=== PATIENT | female | born 1970 | race Caucasian/White ===

== ENCOUNTER 2024-10-21 17:49 | Emergency (ER) | payer BC ==
[2024-10-21] MEDS ORDERED: FAMOTIDINE 20 MG/2 ML VIAL IV ONE (18:13)
[2024-10-21] MEDS ORDERED: NA CHLORIDE 0.9% 1,000 ML ONE (18:13)
[2024-10-21 18:32] LABS: Absolute Basophils 0.1 K/uL (0-0.5); Absolute Eosinophils 0.1 K/uL (0-0.5); Absolute Lymphocytes (CBC) 1.8 K/uL (0.7-4.9); Absolute Monocytes 0.4 K/uL (0.1-1.3); Absolute Neutrophil 6.4 K/uL (1.8-8.0); Basophils % 1.1 % (0-1.3); Eosinophils % 1.6 % (0-4.4); Hematocrit 39.6 % (36.0-45.0); Hemoglobin 13.6 g/dL (12.0-15.0); Lymphocytes % 19.9 % (15.3-44.8); MCH 32.3 pg (27.0-35.0); MCHC 34.4 g/dL (32.0-36.0); MPV 6.9 fL (7.6-11.3); Monocytes % 4.6 % (3.3-12.3); Neutrophils % 72.8 % (41.7-73.7); Platelets 326 thou/uL (152-406); RBC Red Blood Cell Count 4.22 M/uL (3.86-4.86); Red Cell Distribution Width 12.9 % (12.1-15.2)
[2024-10-21 18:33] LABS: Specific Gravity 1.025 (1.005-1.030)
[2024-10-21 18:36] LABS: Specific Gravity 1.025 (1.005-1.030); Sqamous Epithelial <5 /HPF (None Seen); Urine Bacteria None Seen /HPF (<20); Urine Bilirubin NEGATIVE (Negative); Urine Blood 3+ (OVER) (Negative); Urine Clarity Turbid (Clear); Urine Color Yellow (Yellow); Urine Crystals Unidentified Few /HPF (None Seen); Urine Culture Reflex Order REFLEXED; Urine Glucose NEGATIVE (Negative); Urine Ketones NEGATIVE (Negative); Urine Microscopic Reflex YN ORDER UMIC; Urine Mucus 2+ /HPF (None Seen); Urine Nitrite NEGATIVE (Negative); Urine Protein 1+ (Negative); Urine RBC >50 /HPF (None Seen); Urine Urobilinogen Normal (Normal); Urine WBC 20-50 /HPF (<5); Urine Yeast (Budding) Trace /HPF (None Seen)
[2024-10-21 18:55] LABS: ALT/SGPT 21 U/L (13-56); AST/SGOT 20 U/L (15-37); Albumin 4.2 g/dL (3.4-5.0); Albumin/Globulin Ratio 1.1 (1.1-1.8); Alkaline Phosphatase 63 U/L (45-117); Anion Gap 14.5 mEq/L (5.0-15.0); BUN Blood Urea Nitrogen 9 mg/dL (7-18); Bicarbonate 24 mEq/L (21-32); Bilirubin Total 0.5 mg/dL (0.2-1.0); Globulin 3.7 g/dL (2.3-3.5); Glomerular Filtration Rate 86 ml/min (=/>90); Glucose Level 101 mg/dL (74-106); Lipase 75 U/L (13-75); Potassium 3.5 mEq/L (3.5-5.1); Protein, Total 7.9 g/dL (6.4-8.2); Sodium Level 140 mEq/L (136-145); Thyroid Stimulating Hormone 0.907 uIU/mL (0.358-3.740)
[2024-10-21 18:56] LABS: C-Reactive Protein < 2.90 mg/L (<3.00); Troponin High Sensitivity < 3.0 pg/mL (<58.9)
[2024-10-21] MEDS ORDERED: PANTOPRAZOLE 40 MG INJ ONE (19:04)
--- NOTE | 2024-10-21 19:14 | RAD REPORT ---
EXAMINATION: CT ABDOMEN AND PELVIS WITH CONTRAST CLINICAL INDICATION: Female, 53 years old.Epigastric Pain;Abd pain TECHNIQUE: CT abdomen and pelvis was performed, after the administration of IV contrast, as per [facility] protocol. Axial, sagittal and coronal reconstructions were obtained. One or more of the following dose reduction techniques were used: Automated exposure control, adjustment of the mA and/o r kV according to patient size, and/or iterative reconstruction. Unless otherwise specified, incidental findings do not require dedicated imaging follow-up. [id number]. COMPARISON: No prior exam. FINDINGS: LOWER CHEST: No acute process identified.No significant pericardial effusion. Mild circumferential th ickening of the distal esophagus which could reflect esophagitis. UPPER GI: No significant abnormality. LIVER: Benign-appearing low-density lesions along segment 4 of the liver. No follow-up required. GALLBLADDER/BILE DUCTS: No biliary ductal dilatation.? PANCREAS: No mass, ductal dilation, or eda-pancreatic fluid. SPLEEN: Unremarkable. ADRENALS: No adrenal masses. KIDNEYS AND URETERS: No hydronephrosis.No suspicious renal mass.No urinary tract calculi identified. Specifically, no ureteral calculi. ABDOMINAL AORTA AND OTHER VESSELS: Normal caliber aorta and IVC. PERITONEUM: Nonspecific pelvic free fluid. There is also nonspecific fat stranding in the right lower quadrant at the small bowel mesentery and right paracolic gutter. LYMPH NODES: No pathologic lymphadenopathy. ABDOMINAL WALL: Unremarkable SMALL BOWEL/COLON: The course of the colon is difficult to follow. It is likely redundant. There is e vidence of mesenteric swirling in the left hemiabdomen.Normal appendix near the midline in the lower abdomen. No bowel obstruction identified. URINARY BLADDER: Decompressed, not well assessed. REPRODUCTIVE ORGANS: No pathologic process. MUSCULOSKELETAL: Small broad-based disc bulges present at L3-4, L4-5, and L5-S1 but without significa nt neural foraminal narrowing or central spinal stenosis. There is some facet degenerative changes as well that are mild. Nonspecific degenerative changes are present at the right SI joint anteriorly. ADDITIONAL FINDINGS: None. IMPRESSION: Redundant colon with course difficult to follow. No bowel obstruction is identified. Moderate colonic stool is noted. In addition, there is nonspecific stranding in the right lower quadrant and abnormal pelvic free fluid. In the left hemiabdomen, there is "swirling" of the small bowel mesentery but without associated focal inflammatory changes or dilated small bowel. The mesentery can be fairly mobile and that could explain some of these findings and may be unrelated to the acute present ation. In the absence of more definitive features, the findings are nonspecific. Repeat CT with oral contrast or Gastrografin small bowel follow-through could be considered. Note that the appendix is normal and no urinary tract calculi are identified.
--- NOTE | 2024-10-21 19:15 | RAD REPORT ---
Abdomen Exam Limited: 10/21/2024 6:55 PM CLINICAL HISTORY: RUQ pain STUDY: Limited right upper quadrant ultrasound of abdomen. COMPARISON: None. FINDINGS: Liver: Limited evaluation but grossly unremarkable. Bile ducts: No intrahepatic or extrahepatic biliary ductal dilatation. Common bile duct measures 3 mm. Gallbladder: Normal. IMPRESSION: Negative for cholelithiasis or acute cholecystitis. No biliary ductal dilatation.
--- NOTE | 2024-10-21 19:29 | EDPHYS ---
Physician Documentation [facility] Name: Elza Mejia Age: 53 yrs Sex: Female : 1970 Arrival Date: 10/21/2024 Time: 17:49 Bed 5 Private MD: ED Physician Jamila Gerber HPI: 10/21 18:30 This 53 yrs old Female presents to ER via Ambulatory with complaints of Abdominal Pain. sp3 18:30 53-year-old female with history of rheumatoid arthritis, Peng's thyroiditis now sp3 presents to the ED with chief complaint epigastric pain for 3 days progressively getting worse radiating into her back. Patient also has mild pain to the right lower quadrant. She endorses light stools but denies fever, headache, neck pain or stiffness, upper chest pain, shortness of breath, left-sided abdominal pain, dysuria, urinary frequency, gross visualized hematuria, syncope, near syncope, melena, rash, known sick contacts, travel history, or any other signs or symptoms on ROS at this time. Past surgical history is positive for BTL and no other abdominal procedures. . Historical: - Allergies: 18:06 No Known Allergies; ld1 - PMHx: 18:06 Rheumatoid arthritis; Peng Disease; ld1 - Immunization history:: Adult Immunizations up to date. - Infectious Disease History:: Denies. - Social history:: Smoking status: Patient denies any tobacco usage or history of. ROS: 18:33 Constitutional: Negative for fever, chills, and weight loss, Eyes: Negative for injury, sp3 pain, redness, and discharge, ENT: Negative for injury, pain, and discharge, Neck: Negative for injury, pain, and swelling, Cardiovascular: Negative for chest pain, palpitations, and edema, Respiratory: Negative for shortness of breath, cough, wheezing, and pleuritic chest pain, : Negative for injury, bleeding, discharge, and swelling, MS/Extremity: Negative for injury and deformity, Skin: Negative for injury, rash, and discoloration, Neuro: Negative for headache, weakness, numbness, tingling, and seizure, Psych: Negative for depression, anxiety, suicide ideation, homicidal ideation, and hallucinations, Allergy/Immunology: Negative for hives, rash, and allergies, Endocrine: Negative for neck swelling, polydipsia, polyuria, polyphagia, and marked weight changes, Hematologic/Lymphatic: Negative for swollen nodes, abnormal bleeding, and unusual bruising, 18:33 All other systems are negative, Exam: 18:33 Constitutional: This is a well developed, well nourished patient who is awake, alert, sp3 and in no acute distress. Head/Face: Normocephalic, atraumatic. Eyes: Pupils equal round and reactive to light, extra-ocular motions intact. Lids and lashes normal. Conjunctiva and sclera are non-icteric and not injected. Cornea within normal limits. Periorbital areas with no swelling, redness, or edema. Neck: Trachea midline, no thyromegaly or masses palpated, and no cervical lymphadenopathy. Supple, full range of motion without nuchal rigidity, or vertebral point tenderness. No Meningismus. Chest/axilla: Normal chest wall appearance and motion. Nontender with no deformity. No lesions are appreciated. Cardiovascular: Regular rate and rhythm with a normal S1 and S2. No gallops, murmurs, or rubs. Normal PMI, no JVD. No pulse deficits. Respiratory: Lungs have equal breath sounds bilaterally, clear to auscultation and percussion. No rales, rhonchi or wheezes noted. No increased work of breathing, no retractions or nasal flaring. Back: No spinal tenderness. No costovertebral tenderness. Full range of motion. Skin: Warm, dry with normal turgor. Normal color with no rashes, no lesions, and no evidence of cellulitis. MS/ Extremity: Pulses equal, no cyanosis. Neurovascular intact. Full, normal range of motion. Neuro: Awake and alert, GCS 15, oriented to person, place, time, and situation. Cranial nerves II-XII grossly intact. Motor strength 5/5 in all extremities. Sensory grossly intact. Cerebellar exam normal. Normal gait. Psych: Awake, alert, with orientation to person, place and time. Behavior, mood, and affect are within normal limits. 18:33 Abdomen/GI: Pain to palpation epigastric region without peritoneal signs, rebound or guarding. Negative CVA tenderness noted. Patient also has mild pain to the right lower quadrant again without rebound or guarding. No abdominal distention, bloating or surface rash noted., 19:01 ECG was reviewed by the Attending Physician. EKG demonstrates normal sinus rhythm at 81 sp3 bpm with normal intervals, normal QRS, normal axis, normal ST/T segments without evidence of acute ischemia. Vital Signs: 18:05 Weight 29.48 kg; Height 5 ft. 4 in. ; Pain 5/10; ld1 18:28 BP 134 / 71; Pulse 75; Resp 18; Temp 97.3(TE); Pulse Ox 100% on R/A; ld1 18:28 Pain 5/10; ld1 19:24 BP 113 / 63; Pulse 76; Resp 15; Pulse Ox 98% ; vc1 18:05 Body Mass Index 11.16 (29.48 kg, 162.56 cm) ld1 18:05 Pain Scale: Adult ld1 18:28 Pain Scale: Adult ld1 MDM: 17:54 Medical Screening Exam initiated sp3 18:34 Data reviewed: vital signs, nurses notes, old medical records, lab test result(s), EKG, sp3 radiologic studies. ED course: 53-year-old female with PMH above now with epigastric pain. Differential diagnosis includes gastritis, biliary pathology including cholelithiasis, biliary colic, choledocholithiasis, cholecystitis, pancreatitis, peptic ulcer disease, colitis, constipation, functional abdominal pain, among others. I am not highly suspicious of acute coronary syndrome, retroperitoneal pathology, kidney stone/ureterolithiasis, UTI/pyelonephritis spectrum, [employer]ION INVESTIGATOR pathology, vascular pathology including aorta, or any other critical process at this time including sepsis and shock. Vital signs are normal and clinically patient is perfusing properly. Workup will include CT scan of the abdomen pelvis with IV contrast, ultrasound right upper quadrant, general labs including TSH and lactate, EKG and general supportive care with normal saline, Protonix and H2 maria victoria. Disposition pending workup and patient course. Patient will like to be signed out to nighttime physician for final disposition.. 19:24 ED course: Discussed the case with Dr. Bautista radiology. Patient has redundant colon with sp3 extensive stool/constipation. No significant inflammatory changes noted. Gallbladder, appendix, genitourinary system all within normal limits. UA with some white cells however clinically not UTI. I discussed with patient and we will hold antibiotics. Patient also has some esophagitis. Patient was offered Gastrografin with serial plain x-rays and 23-hour observation to follow clinical exam, however patient elects to try laxative at home. 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 Protonix and H2 maria victoria given in the ED. Vital signs currently normal. Ultrasound also demonstrates no gallbladder abnormality. Patient will be discharged home with follow-up to GI for recommended endoscopy. Patient was also counseled on caffeine usage.. 10/21 18:09 Order name: CBC with Diff; Complete Time: 19:08 10/21 18:09 Order name: CMP; Complete Time: 19:10/21 18:09 Order name: Lipase; Complete Time: 19:10/21 18:09 Order name: Test, Urine; Complete Time: 19:10/21 18:09 Order name: Urinalysis w/ reflexes; Complete Time: 19:10/21 18:09 Order name: Troponin High Sensitivity; Complete Time: 19:10/21 18:09 Order name: CRP; Complete Time: 19: 10/21 18:09 Order name: Lactate w/ 2H reflex if indic.; Complete Time: :10/21 18:09 Order name: TSH; Complete Time: 19:10/21 18:41 Order name: Urine Culture [facility] 10/21 18:09 Order name: CT Abd/Pelvis - IV Contrast Only; Complete Time: 19:10/21 18:09 Order name: US Abdomen Limited; Complete Time: 19:10/21 18:09 Order name: IV Saline Lock; Complete Time: 18:27 10/21 18:09 Order name: Labs collected and sent; Complete Time: 18:10/21 18:09 Order name: EKG - Nurse/Tech; Complete Time: 18:27 sp3 Administered Medications: 18:27 Drug: Famotidine IVP 20 mg IVP once; dilute with 10 mL 0.9% NaCl; give over 2 minutes ld1 Route: IVP; Site: right forearm; 19:43 Follow up: Response: No adverse reaction vc1 18:27 Drug: NS 0.9% IV 1000 ml IV at 1 bolus Per protocol; to be given as a bolus over 60 ld1 minutes Route: IV; Rate: 1 bolus; Site: right forearm; 19:43 Follow up: IV Status: Completed infusion; IV Intake: 1000ml vc1 19:11 Drug: Pantoprazole IVP 40 mg IVP once Route: IVP; Site: left antecubital; vc1 19:42 Follow up: Response: No adverse reaction; Marked relief of symptoms vc1 Disposition Summary: 10/21/24 19:28 Discharge Ordered Notes: Location: Home sp3 Condition: Stable sp3 Diagnosis - Abdominal pain, constipation, gastritis, esophagitis sp3 Followup: sp3 - With: Private Physician - When: Upon discharge from the Emergency Department - Reason: If symptoms return, Continuance of care Discharge Instructions: - Discharge Summary Sheet sp3 - Abdominal Pain, Adult sp3 - Constipation, Adult sp3 Forms: - Medication Reconciliation Form sp3 - Antibiotic Education sp3 - Prescription Opioid Use sp3 - Patient Portal Instructions sp3 - Leadership Thank You Letter sp3 Prescriptions: - Protonix 40 mg Oral Tablet - take 1 tablet ORAL route once daily; 30 tablet; Refills: 0, Product Selection sp3 Permitted - Carafate 1 gram Oral Tablet - take 2 tablets ORAL route every 12 hours take on an empty stomach, beginning on sp3 waking and last dose at bedtime; 100 tablet; Refills: 0, Product Selection Permitted Signatures: Dispatcher [employer] EDMS Aileen Goncalves RN RN ld1 Jamila Gerber MD MD sp3 Sandie Ellis RN RN vc1 Corrections: (The following items were deleted from the chart) 18:10 18:10 CBC+H.LAB.BRZ ordered. EDMS EDMS 18:10 18:10 COMPREHENSIVE METABOLIC PANEL+C.LAB.BRZ ordered. EDMS EDMS 18:10 18:10 LIPASE+C.LAB.BRZ ordered. EDMS EDMS 18:10 18:10 Test, Urine+UC.LAB.BRZ ordered. EDMS EDMS 18:10 18:10 Urinalysis+U.LAB.BRZ ordered. EDMS EDMS 18:10 18:10 Troponin High Sensitivity+C.LAB.BRZ ordered. EDMS EDMS 18:10 18:10 C-REACTIVE PROTEIN+C.LAB.BRZ ordered. EDMS EDMS 18:10 18:10 LACTATE+C.LAB.BRZ ordered. EDMS EDMS 18:10 18:10 THYROID STIMULAT HORMONE+C.LAB.BRZ ordered. EDMS EDMS 18:10 18:10 Abdomen Pelvis W Con+CT.RAD.BRZ ordered. EDMS EDMS 18:10 18:10 Abdomen Limited+US.RAD.BRZ ordered. EDMS EDMS 19:30 19:24 ED course: Discussed the case with Dr. Bautista radiology. Patient has redundant colon sp3 with extensive stool/constipation. No significant inflammatory changes noted. Gallbladder, appendix, genitourinary system all within normal limits. UA with some white cells however clinically not UTI. I discussed with patient and we will hold antibiotics. Patient also has some esophagitis. Patient was offered Gastrografin with serial plain x-rays and 23-hour observation to follow clinical exam, however patient elects to try laxative at home. 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 Protonix and H2 maria victoria given in the ED. Vital signs currently normal. Ultrasound also demonstrates no gallbladder abnormality. Patient will be discharged home with follow-up to GI for recommended endoscopy.. sp3
--- NOTE | 2024-10-21 19:29 | ER ---
Nurse's Notes [facility] Name: Elza Mejia Age: 53 yrs Sex: Female : 1970 Arrival Date: 10/21/2024 Time: 17:49 Bed 5 Private MD: Diagnosis: Abdominal pain, constipation, gastritis, esophagitis Presentation: 10/21 18:05 Chief complaint: Patient states: Epigastric pain radiating to back and chest. ld1 Coronavirus screen: At this time, the client does not indicate any symptoms associated with coronavirus-19. Ebola Screen: No symptoms or risks identified at this time. Risk Assessment: Do you want to hurt yourself or someone else? Patient reports no desire to harm self or others. Onset of symptoms was October 21, 2024. 18:05 Method Of Arrival: Ambulatory ld1 18:05 Acuity: ALCIRA 3 ld1 19:24 Initial Sepsis Screen: Does the patient meet any 2 criteria? No. Patient's initial vc1 sepsis screen is negative. Does the patient have a suspected source of infection? No. Patient's initial sepsis screen is negative. Triage Assessment: 18:06 General: Appears in no apparent distress. comfortable, Behavior is calm, cooperative, ld1 appropriate for age. Pain: Complains of pain in epigastric area, right upper quadrant, left upper quadrant and right lower quadrant Pain radiates to back and chest Pain currently is 5 out of 10 on a pain scale. Quality of pain is described as sharp, shooting, Pain began suddenly, Is continuous. Neuro: Level of Consciousness is awake, alert, obeys commands, Oriented to person, place, time, situation. Cardiovascular: Capillary refill < 3 seconds Patient's skin is warm and dry. Respiratory: Airway is patent Respiratory effort is even, unlabored. GI: Abdomen is flat, non-distended, Reports lower abdominal pain, upper abdominal pain. : No signs and/or symptoms were reported regarding the genitourinary system. Derm: No signs and/or symptoms reported regarding the dermatologic system. Musculoskeletal: No signs and/or symptoms reported regarding the musculoskeletal system. Historical: - Allergies: 18:06 No Known Allergies; ld1 - PMHx: 18:06 Rheumatoid arthritis; Peng Disease; ld1 - Immunization history:: Adult Immunizations up to date. - Infectious Disease History:: Denies. - Social history:: Smoking status: Patient denies any tobacco usage or history of. Screenin:28 [facility] ED Fall Risk Assessment (Adult) History of falling in the last 3 months, ld1 including since admission No falls in past 3 months (0 pts) Confusion or Disorientation No (0 pts) Intoxicated or Sedated No (0 pts) Impaired Gait No (0 pts) Mobility Assist Device Used No (0 pt) Altered Elimination No (0 pt) Score/Fall Risk Level 0 - 2 = Low Risk Oriented to surroundings, Hourly rounding (assess needs \T\ fall precautionary measures) done. Abuse screen: Denies threats or abuse. Denies injuries from another. Nutritional screening: No deficits noted. Tuberculosis screening: No symptoms or risk factors identified. Assessment: 18:28 Reassessment: See triage assessment. Pt to CT now. ld1 19:25 General: Appears in no apparent distress. uncomfortable, slender, well groomed, well vc1 developed, well nourished, Behavior is calm, cooperative, appropriate for age. Pain: Complains of pain in abdomen Pain radiates to right upper quadrant and left upper quadrant Quality of pain is described as radiating, sharp, squeezing. Neuro: Level of Consciousness is awake, alert, obeys commands, Oriented to person, place, time, situation, Appropriate for age. Cardiovascular: Patient's skin is warm and dry. Respiratory: Airway is patent Respiratory effort is even, unlabored, Respiratory pattern is regular, symmetrical. GI: Abdomen is flat, non-distended, Reports lower abdominal pain, upper abdominal pain. : Reports pain in right in left lower quadrant(s) in lower back. EENT: No deficits noted. No signs and/or symptoms were reported regarding the EENT system. Derm: Skin is intact, is healthy with good turgor, Skin is dry, Skin is normal, Skin temperature is warm. Vital Signs: 18:05 Weight 29.48 kg; Height 5 ft. 4 in. ; Pain 5/10; ld1 18:28 BP 134 / 71; Pulse 75; Resp 18; Temp 97.3(TE); Pulse Ox 100% on R/A; ld1 18:28 Pain 5/10; ld1 19:24 BP 113 / 63; Pulse 76; Resp 15; Pulse Ox 98% ; vc1 18:05 Body Mass Index 11.16 (29.48 kg, 162.56 cm) ld1 18:05 Pain Scale: Adult ld1 18:28 Pain Scale: Adult ld1 ED Course: 17:50 Patient arrived in ED. ra3 17:54 Jamila Gerber MD is Attending Physician. sp3 18:05 Aileen Goncalves, RN is Primary Nurse. ld1 18:06 Triage completed. ld1 18:06 Arm band placed on right wrist. ld1 18:27 Urinalysis w/ reflexes Sent. ld1 18:27 Lactate w/ 2H reflex if indic. Sent. ld1 18:27 Inserted saline lock: 22 gauge in right forearm, using aseptic technique. Blood ld1 collected. Flushed with 10 mL NS. 18:28 Patient has correct armband on for positive identification. Bed in low position. Call ld1 light in reach. Side rails up X2. Pulse ox on. NIBP on. Door closed. Noise minimized. Warm blanket given. 18:28 No provider procedures requiring assistance completed. ld1 18:49 CT Abd/Pelvis - IV Contrast Only In Process Unspecified. EDMS 18:57 US Abdomen Limited In Process Unspecified. EDMS 19:42 IV discontinued, intact, bleeding controlled, No redness/swelling at site. Pressure vc1 dressing applied. Administered Medications: 18:27 Drug: Famotidine IVP 20 mg IVP once; dilute with 10 mL 0.9% NaCl; give over 2 minutes ld1 Route: IVP; Site: right forearm; 19:43 Follow up: Response: No adverse reaction vc1 18:27 Drug: NS 0.9% IV 1000 ml IV at 1 bolus Per protocol; to be given as a bolus over 60 ld1 minutes Route: IV; Rate: 1 bolus; Site: right forearm; 19:43 Follow up: IV Status: Completed infusion; IV Intake: 1000ml vc1 19:11 Drug: Pantoprazole IVP 40 mg IVP once Route: IVP; Site: left antecubital; vc1 19:42 Follow up: Response: No adverse reaction; Marked relief of symptoms vc1 Medication: 18:28 VIS not applicable for this client. ld1 Intake: 19:43 IV: 1000ml; Total: 1000ml. vc1 Outcome: 19:28 Discharge ordered by . sp3 19:42 Discharged to home ambulatory, vc1 19:42 Condition: good 19:42 Discharge instructions given to patient, Instructed on discharge instructions, follow up and referral plans. medication usage, Demonstrated understanding of instructions, follow-up care, medications, Prescriptions given X 2, 19:42 Patient left the ED. vc1 Signatures: Dispatcher [employer] EDMS Aileen Goncalves RN RN ld1 Jamila Gerber MD MD sp3 Sandie Ellis RN RN vc1 Katrina Forte ra3
[2024-10-21 19:50] VITALS: TEMP 97.3
[2024-10-21 19:51] VITALS: BP 113/63; O2SAT 98
== END 2024-10-21 19:42 | disposition home or self-care (01) ==
LOC: EEVIPCON 17:49 → ER 17:49
DX: K59.00 Constipation, unspecified (principal); K29.70 Gastritis, unspecified, without bleeding; K20.90 Esophagitis, unspecified without bleeding
CPT/HCPCS: 87088; 85025; 81001; 87086; 36415; 81025; 83605; 84443; 84484; 83690; 80053; 86140; 74177; 76705; 99284; Q9967; J2470; J7030; 93005

== ENCOUNTER 2024-10-22 09:42 | Observation (INO) | payer BC ==
[2024-10-22] MEDS ORDERED: DIPHENHYDRAMINE 50 MG/ML VIAL ONE ×2 (09:47→13:49)
[2024-10-22] MEDS ORDERED: ONDANSETRON 4 MG/2 ML VIAL ONE (09:53)
[2024-10-22] MEDS ORDERED: FAMOTIDINE 20 MG/2 ML VIAL IV ONE (09:53)
[2024-10-22 11:48] LABS: Absolute Basophils 0.1 K/uL (0-0.5); Absolute Eosinophils 0.1 K/uL (0-0.5); Absolute Lymphocytes (CBC) 1.5 K/uL (0.7-4.9); Absolute Monocytes 0.4 K/uL (0.1-1.3); Absolute Neutrophil 6.7 K/uL (1.8-8.0); Basophils % 1.2 % (0-1.3); Eosinophils % 1.5 % (0-4.4); Hematocrit 38.2 % (36.0-45.0); Hemoglobin 13.3 g/dL (12.0-15.0); Lymphocytes % 16.6 % (15.3-44.8); MCH 32.5 pg (27.0-35.0); MCHC 34.9 g/dL (32.0-36.0); MCV 93.2 fL (80-100); MPV 7.7 fL (7.6-11.3); Monocytes % 4.2 % (3.3-12.3); Neutrophils % 76.5 % (41.7-73.7); Platelets 328 thou/uL (152-406); Red Cell Distribution Width 12.6 % (12.1-15.2)
[2024-10-22 12:06] LABS: Albumin/Globulin Ratio 1.1 (1.1-1.8); Anion Gap 8.4 mEq/L (5.0-15.0); Bilirubin Total 0.5 mg/dL (0.2-1.0); Globulin 3.5 g/dL (2.3-3.5); Potassium 3.4 mEq/L (3.5-5.1); Protein, Total 7.5 g/dL (6.4-8.2)
[2024-10-22] MEDS ORDERED: NA CHLORIDE 0.9% 500 ML ONE (13:49)
--- NOTE | 2024-10-22 13:59 | RAD REPORT ---
EXAMINATION: CT Abdomen Pelvis W Contrast CLINICAL INDICATION: Female, 53 years old. rule out volvulus ;Abd pain TECHNIQUE: CT abdomen and pelvis was performed, after the administration of IV contrast, as per [facility] protocol. Axial, sagittal and coronal reconstructions were obtained. One or more of the following dose reduction techniques were used: Automated exposure control, adjustment of the mA and k V according to patient size, and iterative reconstruction. Unless otherwise specified, incidental findings do not require dedicated imaging follow-up. COMPARISON: 10/21/2024 FINDINGS: LOWER CHEST: The visualized lung bases are clear. Breast implants present. LIVER: Normal in size and contour. Subcapsular left liver lobe 1.40 low-density lesions suggesting a benign cyst. No suspicious focal lesion. BILIARY SYSTEM: No suspicious abnormalities. SPLEEN: Normal size. No focal lesion. PANCREAS: No mass, ductal dilation, or eda-pancreatic fluid. ADRENALS: Normal; no mass. KIDNEYS: Normal size and contour. No hydronephrosis. URINARY BLADDER: Compressed limiting evaluation. GASTROINTESTINAL TRACT: Mild wall thickening and adventitial fat stranding along the distal sigmoid a nd proximal rectum. No evidence of free air, significant intra-abdominal free fluid, bowel obstruction or abscess. APPENDIX: Normal appendix. LYMPH NODES: No lymphadenopathy. MUSCULOSKELETAL: No acute or suspicious osseous abnormality. ADDITIONAL FINDINGS: None. IMPRESSION: Mild wall thickening and adventitial fat stranding along the distal sigmoid proximal rectum, suggesti ng mild infectious or inflammatory proctocolitis.
--- NOTE | 2024-10-22 14:57 | RAD REPORT ---
EXAM: CT Head Brain Wo Cont HISTORY: vomiting;Headache COMPARISON: None TECHNIQUE: Multiple contiguous axial images were obtained for a CT of the brain without contrast. Sag ittal and coronal reformats were performed. One or more of the following dose reduction techniques were used: Automated exposure control, adjus tment of the mA and kV according to patient size, and iterative reconstruction. Unless otherwise specified, incidental findings do not require dedicated imaging follow-up. FINDINGS: No evidence of hydrocephalus, intracranial hemorrhage, or extra-axial fluid collection. The brain is normal in morphology. The calvarium is intact. The visualized paranasal sinuses and mastoid air cells are essentially clear . IMPRESSION: No evidence of acute intracranial abnormality.
[2024-10-22] MEDS ORDERED: KETOROLAC 30 MG/ML INJ ONE (15:13)
[2024-10-22] MEDS ORDERED: NA CHLORIDE 0.9% 100 ML ONE (15:14)
[2024-10-22] MEDS ORDERED: PIPERACIL/TAZO 3.375 GM VIAL IV ONE (15:14)
--- NOTE | 2024-10-22 15:14 | ER ---
Nurse's Notes [facility] Name: Elza Mejia Age: 53 yrs Sex: Female : 1970 Arrival Date: 10/22/2024 Time: 09:42 Bed 24 Private MD: Diagnosis: Headache;Left sided colitis;Abdominal pain, unspecified Presentation: 10/22 09:50 Coronavirus screen: At this time, the client does not indicate any symptoms associated ld1 with coronavirus-19. Ebola Screen: No symptoms or risks identified at this time. Initial Sepsis Screen: Does the patient meet any 2 criteria? No. Patient's initial sepsis screen is negative. Does the patient have a suspected source of infection? No. Patient's initial sepsis screen is negative. Risk Assessment: Do you want to hurt yourself or someone else?. Onset of symptoms was October 22, 2024. 09:50 Method Of Arrival: Ambulatory ld1 09:50 Acuity: ALCIRA 3 ld1 09:51 Chief complaint: Patient states: Migraine, vomiting. ld1 Triage Assessment: 09:49 General: Appears in no apparent distress. uncomfortable, Behavior is calm, cooperative, ld1 appropriate for age. Pain: Complains of pain in face Pain does not radiate. Pain currently is 6 out of 10 on a pain scale. Quality of pain is described as pressure, throbbing, Pain began 1 day ago. Is continuous. EENT: No signs and/or symptoms were reported regarding the EENT system. Neuro: Level of Consciousness is awake, alert, obeys commands, Oriented to person, place, time, situation. Cardiovascular: Capillary refill < 3 seconds Patient's skin is warm and dry. Respiratory: Airway is patent Respiratory effort is even, unlabored. GI: Abdomen is flat, non-distended. : No signs and/or symptoms were reported regarding the genitourinary system. Derm: No signs and/or symptoms reported regarding the dermatologic system. Musculoskeletal: No signs and/or symptoms reported regarding the musculoskeletal system. 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 - Infectious Disease History:: Denies. - Social history:: Smoking status: Patient denies any tobacco usage or history of. - Family history:: not pertinent. - Hospitalizations: : No recent hospitalization is reported. Screenin:45 [facility] ED Fall Risk Assessment (Adult) History of falling in the last 3 months, ld1 including since admission No falls in past 3 months (0 pts) Confusion or Disorientation No (0 pts) Intoxicated or Sedated No (0 pts) Impaired Gait No (0 pts) Mobility Assist Device Used No (0 pt) Altered Elimination No (0 pt) Score/Fall Risk Level 0 - 2 = Low Risk Oriented to surroundings, Hourly rounding (assess needs \T\ fall precautionary measures) done. Abuse screen: Denies threats or abuse. Denies injuries from another. Nutritional screening: No deficits noted. Tuberculosis screening: No symptoms or risk factors identified. Assessment: 10:30 Reassessment: See triage assessment. ld1 10:45 Reassessment: Pt completed PO contrast - notified CT. ld1 10:45 Reassessment: Patient appears in no apparent distress at this time. Patient is alert, ld1 oriented x 3, equal unlabored respirations, skin warm/dry/pink. Pt reports headache slightly better. Patient states symptoms have improved. 13:40 Reassessment: C/O pain to head. Notified ERP. See MAR for orders. Provided ice pack to ld1 head, warm blankets. Pt resting in bed waiting on CT of head at this time. 13:40 Neuro: Level of Consciousness is awake, obeys commands, Oriented to person, place, ld1 time, situation, Reports headache. Cardiovascular: Capillary refill < 3 seconds Patient's skin is warm and dry. Respiratory: Airway is patent Respiratory effort is even, unlabored. 15:00 Reassessment: Patient appears in no apparent distress at this time. Patient and/or ld1 family updated on plan of care and expected duration. Pain level reassessed. Patient is alert, oriented x 3, equal unlabored respirations, skin warm/dry/pink. 16:06 Reassessment: Patient appears in no apparent distress at this time. Patient and/or ld1 family updated on plan of care and expected duration. Pain level reassessed. Patient is alert, oriented x 3, equal unlabored respirations, skin warm/dry/pink. Patient states feeling better. Vital Signs: 10:30 BP 106 / 70; Pulse 82; Resp 18; Pulse Ox 100% on R/A; Height 5 ft. 3 in. ; Pain 9/10; ld1 14:00 BP 113 / 63; Pulse 73; Resp 18; Pulse Ox 99% on R/A; Pain 7/10; cm10 16:06 BP 128 / 79; Pulse 72; Resp 18; Pulse Ox 100% on R/A; Pain 4/10; ld1 10:30 Pain Scale: Adult ld1 14:00 Pain Scale: Adult cm10 16:06 Pain Scale: Adult ld1 [place] Coma Score: 15:13 Eye Response: spontaneous(4). Motor Response: obeys commands(6). Verbal Response: rn oriented(5). Total: 15. ED Course: 09:42 Patient arrived in ED. ra3 09:44 Hao Burton MD is Attending Physician. eb 09:48 Inserted saline lock: 20 gauge in left antecubital area, using aseptic technique. ld1 09:49 Arm band placed on right wrist. ld1 09:51 Triage completed. ld1 10:45 No provider procedures requiring assistance completed. ld1 10:45 Patient has correct armband on for positive identification. Placed in gown. Bed in low ld1 position. Call light in reach. Side rails up X2. Pulse ox on. NIBP on. Door closed. Noise minimized. Warm blanket given. 11:08 Aileen Goncalves, CASPER is Primary Nurse. ld1 12:57 CT Abd/Pelvis - PO and IV Contrast In Process Unspecified. EDMS 14:29 CT Head Brain wo Cont In Process Unspecified. EDMS 15:13 Kev Lucero MD is Hospitalizing Provider. rn 16:37 Patient admitted, IV remains in place. ld1 Administered Medications: 09:48 Drug: NS 0.9% IV 1000 ml IV at 1 bolus Per protocol; to be given as a bolus over 60 ld1 minutes Route: IV; Rate: 1 bolus; Site: left antecubital; 11:12 Follow up: Response: No adverse reaction; IV Status: Completed infusion; IV Intake: ld1 1000ml 09:48 Drug: diphenhydrAMINE IVP 25 mg IVP once Route: IVP; Site: left antecubital; ld1 11:11 Follow up: Response: No adverse reaction ld1 10:11 Drug: Famotidine IVP 20 mg IVP once; dilute with 10 mL 0.9% NaCl; give over 2 minutes ld1 Route: IVP; Site: left antecubital; 11:11 Follow up: Response: No adverse reaction ld1 10:11 Drug: Ondansetron IVP 4 mg IVP once; over 2 minutes Route: IVP; Site: left antecubital; ld1 11:12 Follow up: Response: No adverse reaction ld1 13:58 Drug: diphenhydrAMINE IVP 25 mg IVP once Route: IVP; Site: right hand; ld1 16:15 Follow up: Response: No adverse reaction ld1 13:58 Drug: NS 0.9% IV 500 ml 500 ml IV at 1 bolus once; to be given as a bolus over 30 ld1 minutes Volume: 500 ml; Route: IV; Rate: 1 bolus; Site: right hand; 16:15 Follow up: Response: No adverse reaction; IV Status: Completed infusion; IV Intake: ld1 500ml 15:21 Drug: Ketorolac IVP 15 mg IVP once Route: IVP; Site: left antecubital; bp 16:15 Follow up: Response: No adverse reaction ld1 15:22 Drug: Piperacillin-Tazobactam IVPB 3.375 grams IVPB once over 60 mins; (mix in NS 100 bp mL) Route: IVPB; Infused Over: 60 mins; Site: left forearm; 16:16 Follow up: Response: No adverse reaction; IV Status: Completed infusion; IV Intake: ld1 100ml 16:15 Drug: SUMAtriptan PO 50 mg PO once Route: PO; ld1 16:16 Follow up: Response: No adverse reaction ld1 Medication: 10:45 VIS not applicable for this client. ld1 Intake: 11:12 IV: 1000ml; Total: 1000ml. ld1 16:15 IV: 500ml; Total: 1500ml. ld1 16:16 IV: 100ml; Total: 1600ml. ld1 Outcome: 15:14 Decision to Hospitalize by Provider. rn 16:36 Admitted to Med/surg accompanied by tech, via wheelchair, room 408, ld1 16:36 Condition: stable 16:36 Instructed on the need for admit, 16:37 Patient left the ED. ld1 Signatures: Dispatcher [employer] EDMS Hao Burton MD MD rn Peltier, Brian, RN RN bp Botello, Mona eb Goncalves, Aileen, RN RN ld1 Kalyani Villafana, RN RN cm10 Katrina Forte ra3
--- NOTE | 2024-10-22 15:14 | EDPHYS ---
Physician Documentation [facility] Name: Elza Mejia Age: 53 yrs Sex: Female : 1970 Arrival Date: 10/22/2024 Time: 09:42 Bed 24 Private MD: ED Physician Hao Burton HPI: 10/22 13:39 This 53 yrs old Female presents to ER via Ambulatory with complaints of Abdominal Pain, rn Headache, Vomiting. 13:39 The patient complains of pain to the top of head and forehead. The patient describes rn the headache as aching. Onset: The symptoms/episode began/occurred yesterday. Severity of symptoms: At its worst the pain was moderate, "similar to past headaches". The symptoms are alleviated by nothing. the symptoms are aggravated by nothing. The patient has experienced similar episodes in the past. Patient reports having migraine headache, has history of migraine headaches and this feels similar. She is concerned because headache is not improving and she is not able to take her normal migraine medication secondary to an abdominal problem that she is having. Has been having several days of abdominal pain, nausea, cough. Seen yesterday and diagnosed with possible esophagitis. Patient states abdominal pain has improved but still nauseated and throwing up and cannot keep her medication down.. Historical: - Allergies: 09:49 No Known Allergies; ld1 - PMHx: 09:49 Peng disease; Rheumatoid Arthritis; ld1 - Immunization history:: Adult Immunizations up to date. - Infectious Disease History:: Denies. - Social history:: Smoking status: Patient denies any tobacco usage or history of. - Family history:: not pertinent. - Hospitalizations: : No recent hospitalization is reported. ROS: 13:39 Constitutional: Negative for fever, chills, and weight loss, Cardiovascular: Negative rn for chest pain, palpitations, and edema, Respiratory: Positive for cough Abdomen/GI: Positive for upper abdominal pain with nausea and vomiting Neuro: Positive for headache Exam: 13:39 Constitutional: This is a well developed, well nourished patient who is awake, alert, rn appears uncomfortable Neuro: Awake and alert, GCS 15, ambulatory to room Vital Signs: 10:30 BP 106 / 70; Pulse 82; Resp 18; Pulse Ox 100% on R/A; Height 5 ft. 3 in. ; Pain 9/10; ld1 14:00 BP 113 / 63; Pulse 73; Resp 18; Pulse Ox 99% on R/A; Pain 7/10; cm10 16:06 BP 128 / 79; Pulse 72; Resp 18; Pulse Ox 100% on R/A; Pain 4/10; ld1 10:30 Pain Scale: Adult ld1 14:00 Pain Scale: Adult cm10 16:06 Pain Scale: Adult ld1 [place] Coma Score: 15:13 Eye Response: spontaneous(4). Motor Response: obeys commands(6). Verbal Response: rn oriented(5). Total: 15. MDM: 09:47 Medical Screening Exam initiated rn 15:13 Differential diagnosis: hypertensive headache, intracerebral hemorrhage, migraine, rn neoplasm, tension headache, vasomotor headache. Data reviewed: vital signs, nurses notes, lab test result(s), radiologic studies, CT scan, and as a result, I will admit patient. Consideration of Admission/Observation Patient was admitted/placed on observation. Escalation of care including admission/observation considered. Management of patient was discussed with the following: Primary Care Provider: Discussed case with Dr. Lucero, will admit. . Counseling: I had a detailed discussion with the patient and/or guardian regarding the historical points, exam findings, and any diagnostic results supporting the discharge/admit diagnosis, lab results, radiology results, the need for further work-up and treatment in the hospital. 10/22 09:47 Order name: CBC with Diff; Complete Time: 12:43 rn 10/22 09:47 Order name: CMP; Complete Time: 12:43 rn 10/22 09:47 Order name: Lipase; Complete Time: 12:43 rn 10/22 09:49 Order name: Troponin High Sensitivity; Complete Time: 12:43 rn 10/22 09:52 Order name: Lactate w/ 2H reflex if indic.; Complete Time: 11:08 rn 10/22 15:22 Order name: Stool Culture rn 10/22 15:22 Order name: CDIFF rn 10/22 09:49 Order name: CT Abd/Pelvis - PO and IV Contrast; Complete Time: 15:04 rn 10/22 13:49 Order name: CT Head Brain wo Cont; Complete Time: 15:04 rn 10/22 09:47 Order name: IV Saline Lock; Complete Time: 09:49 rn 10/22 09:47 Order name: Labs collected and sent; Complete Time: 09:49 rn Administered Medications: 09:48 Drug: NS 0.9% IV 1000 ml IV at 1 bolus Per protocol; to be given as a bolus over 60 ld1 minutes Route: IV; Rate: 1 bolus; Site: left antecubital; 11:12 Follow up: Response: No adverse reaction; IV Status: Completed infusion; IV Intake: ld1 1000ml 09:48 Drug: diphenhydrAMINE IVP 25 mg IVP once Route: IVP; Site: left antecubital; ld1 11:11 Follow up: Response: No adverse reaction ld1 10:11 Drug: Famotidine IVP 20 mg IVP once; dilute with 10 mL 0.9% NaCl; give over 2 minutes ld1 Route: IVP; Site: left antecubital; 11:11 Follow up: Response: No adverse reaction ld1 10:11 Drug: Ondansetron IVP 4 mg IVP once; over 2 minutes Route: IVP; Site: left antecubital; ld1 11:12 Follow up: Response: No adverse reaction ld1 13:58 Drug: diphenhydrAMINE IVP 25 mg IVP once Route: IVP; Site: right hand; ld1 16:15 Follow up: Response: No adverse reaction ld1 13:58 Drug: NS 0.9% IV 500 ml 500 ml IV at 1 bolus once; to be given as a bolus over 30 ld1 minutes Volume: 500 ml; Route: IV; Rate: 1 bolus; Site: right hand; 16:15 Follow up: Response: No adverse reaction; IV Status: Completed infusion; IV Intake: ld1 500ml 15:21 Drug: Ketorolac IVP 15 mg IVP once Route: IVP; Site: left antecubital; bp 16:15 Follow up: Response: No adverse reaction ld1 15:22 Drug: Piperacillin-Tazobactam IVPB 3.375 grams IVPB once over 60 mins; (mix in NS 100 bp mL) Route: IVPB; Infused Over: 60 mins; Site: left forearm; 16:16 Follow up: Response: No adverse reaction; IV Status: Completed infusion; IV Intake: ld1 100ml 16:15 Drug: SUMAtriptan PO 50 mg PO once Route: PO; ld1 16:16 Follow up: Response: No adverse reaction ld1 Disposition Summary: 10/22/24 15:14 Hospitalization Ordered Notes: Hospitalization Status: Inpatient Admission rn Provider: Kev Lucero rn Location: Telemetry/MedSurg (Inpatient) rn Condition: Stable rn Problem: new rn Symptoms: have improved rn Bed/Room Type: Standard rn Room Assignment: 408(10/22/24 16:08) eb Diagnosis - Headache rn - Left sided colitis rn - Abdominal pain, unspecified rn Forms: - Medication Reconciliation Form rn - SBAR form rn - Leadership Thank You Letter rn Signatures: Dispatcher [employer] EDMS Hao Burton MD MD rn Peltier, Brian RN RN Mona Anderson Lauren RN RN ld1 Corrections: (The following items were deleted from the chart) 09:48 09:48 CBC+H.LAB.BRZ ordered. EDMS EDMS 09:48 09:48 COMPREHENSIVE METABOLIC PANEL+C.LAB.BRZ ordered. EDMS EDMS 09:48 09:48 LIPASE+C.LAB.BRZ ordered. EDMS EDMS 15:46 15:14 rn eb 16:08 15:46 417 eb
[2024-10-22 16:51] VITALS: BMI 20.9
[2024-10-22] MEDS: SUMATRIPTAN SUCCI 50 MG TAB PO ONE (17:00)
[2024-10-22] MEDS ORDERED: ONDANSETRON 4 MG/2 ML VIAL IV PRN (18:22)
[2024-10-22] MEDS: D5 0.45 NS 1,000 ML IV SCH (20:10)
[2024-10-22] MEDS ORDERED: SUMATRIPTAN SUCCI 50 MG TAB PO ONE (21:00)
[2024-10-23] MEDS: PIPER TAZO 3.375 GM in NA CHLORIDE 0.9% 100 ML IV SCH (00:47)
[2024-10-23] MEDS ORDERED: PIPER TAZO 3.375 GM in NA CHLORIDE 0.9% 100 ML IV SCH (01:00)
[2024-10-23] MEDS: ACETAMINOPHEN 500 MG TAB PO PRN (04:00)
--- NOTE | 2024-10-23 04:17 | HP ---
Date of Admission: 10/22/2024 Chief Complaint: Abdominal pain, nausea, vomiting, and headache. History Of Present Illness: This is a 53-year-old very pleasant female patient who was doing fine in her normal usual state of health until yesterday. She started to have this abdominal pain, nausea, vomiting, and she came into emergency room after she was evaluated in the ER. She had a workup done, which included CBC, chemistry profile, abdominal ultrasound, and CAT scan of abdomen and pelvis, and she was released to go home. This morning when I was living hospital I saw her outside in the [facility] parking lot as she came back to emergency room and she informed me about all these details regard ing what happened yesterday and she checked in emergency room again today and I went to emergency [facility] to check on her as well and details were discussed with ER physician, and after further evaluation in the emergency room, decision was made to admit her to hospital this time. severe heada edel and she was having significant abdominal pain with associated nausea, vomiting. She was feeling very miserable. She denies any fever, chills. No hematemesis. No blood in urine or blood in stool. Allergies: NO KNOWN ALLERGIES. Medications: Albuterol inhaler 2 puffs 4 times a day as needed for shortness of breath, Breztri inha ler 2 puffs twice a day, hydroxychloroquine daily, levothyroxine 150 mcg daily, sulfasalazine daily, venlafaxine 75 mg daily. 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 GI: As mentioned above. All other systems reviewed and negative. Past Medical History: Significant for moderate persistent asthma, allergic rhinitis, hypothyroidism, psoriatic arthritis, anxiety, depression, osteopenia. 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 Had a stress fract ure of the right femoral neck in 2008 and did not require any surgery. Past Surgical History: Significant for ear surgery, bilateral hand surgery with removal of trapezium in 2019, and breast augmentation with saline implant in 2001. Family History: Father has hypertension. Mother, asthma and melanoma. Social History: Negative for smoking. Alcohol use is rarely. Physical Examination: VITAL SIGNS: Blood pressure 106/70, pulse 82, respiratory rate 18, oxygen saturation 100%. Height 5 feet 3 inches, weight pounds. General: Patient appears acutely ill, awake, alert, oriented, feels miserable due to obvious pain in her stomach and headache. HEENT: Head atraumatic, normocephalic. Conjunctivae nonerythematous. Sclerae white. Mouth, no thr ush or edema noted. Ears/Nose, no mass, lesion, discharge noted. Neck: Supple. No JVD, lymph nodes, bruit, thyromegaly noted. Lungs: Bilateral good equal air entry. Clear to auscultation. No rhonchi. No rales. Heart: Normal heart sounds, no murmur or gallop. Abdomen: Presence of tenderness in her upper and lower abdomen, in epigastric and left lower quadran t region. No rebound tenderness. Abdomen is not distended. Bowel sounds normoactive. No hepatospl enomegaly. No bruit. Extremities: No leg edema. No calf tenderness. Skin: No rash, ulcer, cellulitis. Lymphatics: No lymph node enlargement in neck, supraclavicular, infraclavicular region. Neuro: No focal neurological deficit. Chest: Unremarkable. External Genitalia: Deferred. Rectal: Deferred. Laboratory Data: WBC 8.8, hemoglobin 13.3, platelets 328. Sodium 140, potassium 3.4, chloride 107, bicarb 28, BUN 10, creatinine 0.81, glucose 117. Liver function tests unremarkable. Lactic acid 1.6 . Troponin less than 3. Lipase 66. CAT scan of the head was negative for any acute intracranial ch anges. CAT scan of abdomen and pelvis shows changes of proctocolitis. No evidence of bowel obstruct ion. Urinalysis: 250 leukocyte esterase, more than 50 RBC, 20 to 50 WBC, 3+ blood. Urine test negative. Yesterday's CBC, chemistry profile, abdominal ultrasound and CAT scan of the abdomen results reviewed. Impression: 1. Proctocolitis. 2. Migraine. 3. Moderate persistent asthma. 4. Allergic rhinitis. 5. Hypothyroidism. 6. Anxiety. 7. Depression. Plan: We will go ahead and admit patient to hospital for further evaluation and management of this p roblem. The patient is appropriate for inpatient and is expected to spend 2 midnights in hospital. For her proctocolitis, we will start her on IV antibiotic, which is Zosyn. I have ordered stool for C difficile. 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 We will st art her on clear liquid diet and I will see her tomorrow for followup visit. The patient did not wan t to take any stronger narcotic pain medications in emergency room and I did check with our hospital pharmacy. We have Imitrex injection as well as Imitrex oral tablet available. So, 1 dose of Imitrex 50 mg was ordered to be given in the emergency room, and later this evening, I checked with the ignacio ent and she is feeling significantly better as far as her headache is concerned after taking that 1 d ose of Imitrex. I have ordered Imitrex 50 mg p.o. x1 dose today on a p.r.n. basis in case if she nee ds it for her headache. She received 1 L of IV fluid in the emergency room and we will not give her any more IV fluid now and continue Zosyn. I will see her tomorrow morning for followup, and dependin g on her condition, we will decide about advancing her diet tomorrow. The patient should ambulate as tolerated. Asthma will not require any further intervention at this time. She takes venlafaxine fo r anxiety, depression and we will continue that. No need for further intervention. Yesterday, her u rinalysis was normal. Urine culture was sent. We will follow up on that result. So far, it is pending. I will s ee her tomorrow for followup. LIA/MODL Voice ID: [id number]
[2024-10-23 04:30] LABS: Absolute Basophils 0.1 K/uL (0-0.5); Absolute Eosinophils 0.2 K/uL (0-0.5); Absolute Lymphocytes (CBC) 1.5 K/uL (0.7-4.9); Absolute Monocytes 0.5 K/uL (0.1-1.3); Eosinophils % 4.4 % (0-4.4); Hematocrit 35.7 % (36.0-45.0); Hemoglobin 12.5 g/dL (12.0-15.0); Lymphocytes % 28.2 % (15.3-44.8); MCHC 35.2 g/dL (32.0-36.0); MCV 93.8 fL (80-100); MPV 6.8 fL (7.6-11.3); Monocytes % 9.1 % (3.3-12.3); Neutrophils % 57.3 % (41.7-73.7); Platelets 250 thou/uL (152-406)
[2024-10-23 04:50] LABS: ALT/SGPT 16 U/L (13-56); AST/SGOT 13 U/L (15-37); Albumin 3.1 g/dL (3.4-5.0); Alkaline Phosphatase 51 U/L (45-117); Anion Gap 6.4 mEq/L (5.0-15.0); BUN Blood Urea Nitrogen 7 mg/dL (7-18); Bicarbonate 27 mEq/L (21-32); Bilirubin Total 0.5 mg/dL (0.2-1.0); Glomerular Filtration Rate 103 ml/min (=/>90); Glucose Level 88 mg/dL (74-106); Lipase 80 U/L (13-75); Potassium 3.4 mEq/L (3.5-5.1); Protein, Total 6.1 g/dL (6.4-8.2); Sodium Level 141 mEq/L (136-145)
[2024-10-23 05:10] LABS: Bilirubin Direct < 0.2 mg/dL (0-0.2); Bilirubin Indirect, Calculated 0.3 mg/dL (0.2-0.8)
[2024-10-23] MEDS: SUMATRIPTAN SUCCI 50 MG TAB PO ONE (06:23)
[2024-10-23 07:49] VITALS: TEMP 97.9
[2024-10-23] MEDS: POTASSIUM CL SA 10 MEQ TAB PO ONE (08:54)
[2024-10-23] MEDS: PNEUMOCOCCAL VACCINE 0.5 ML IMVAC ONE (11:00)
[2024-10-23 11:06] VITALS: O2SAT 98
[2024-10-23 12:17] VITALS: BP 105/50
[2024-10-23 12:20] LABS: STOOL CONSISTENCY Liquid/Semi-Solid
[2024-10-23 12:21] LABS: C.diff Antigen/Toxin Ag neg : Tox neg (NEG : NEG); CDIFF INTERNAL NEG CONTROL White Background (WHITE BKGD)
--- NOTE | 2024-10-24 05:31 | DS ---
Date of Discharge: 10/23/2024 Disposition: The patient will be discharged to go home. Physical Examination: HEENT: Unremarkable. Lungs: Clear to auscultation. Heart: Sounds normal. Abdomen: Soft. Bowel sounds normal. No guarding, rigidity, tenderness, distention. Extremities: No leg edema. Laboratory Data: Yesterday, WBC 8.8, hemoglobin 13.3, platelets 328. Today, WBC 5.2, hemoglobin 12. 5, and platelets 250. For chemistry, yesterday, sodium 140, potassium 3.4, chloride 107, bicarb 28, BUN 10, creatinine 0.81, glucose 117. Liver function test unremarkable. Lactic acid 1.6. Troponin less than 3. Lipase 66. Today, sodium 141, potassium 3.4, chloride 111, bicarb 27, BUN 7, creatinin e 0.68, glucose 88. Liver function test unremarkable. Lipase 80. Discharge Medications And Instructions: 1. Continue all prior home medications. 2. Augmentin 500 mg 2 times a day for 1 week, take it with food. 3. Topamax 25 mg take 1 tablet by mouth daily at bedtime. 4. Imitrex 50 mg p.o. every 2 hours as needed for migraine headache with maximum dose of 4 tablets in 24 hours. 5. Keep well hydrated. 6. Follow up at my office next week on , which is October 27, 2024. Hospital Course: This is a 53-year-old pleasant female patient who was admitted to the hospital afte r she came into emergency room yesterday with headache, abdominal pain, nausea, vomiting. Please see dictated H and P for more information. After the patient was evaluated in the emergency room, she w as admitted to the hospital and in the emergency room, routine blood work and CAT scan of the head wa s done, which was negative for any acute intracranial changes and CAT scan of abdomen and pelvis show ed changes of proctocolitis. The patient was given 1 dose of tramadol in the emergency room and Tyle nol that really did not help to alleviate her pain, and after 1 dose of Imitrex, her migraine headach e got significantly better. She did require second dose of Imitrex . This morning when I saw her, she is feeling significantly better. Her abdominal pain has completely resolved. Her migra ine headache is much better. Upon further questioning, the patient reports that she gets migraine he adache about every 2 to 2-1/2 weeks and she usually manages it with [id number] medication. I elicia parrish instructed her to try some prophylactic medication, so we will go ahead and try Topamax to see tish anna that helps to alleviate her frequency and severity of migraine headache, which she is willing to tr y and I have discussed side effects with her. Stool for C difficile was ordered, which unfortunately someone canceled it, so specimen was never sent down and I have asked nursing staff to send her [facility] l specimen for C difficile. The patient will be discharged to go home in stable condition with above -mentioned medications and instructions. Final Diagnoses: 1. Proctocolitis. 2. Migraine. 3. . 4. . LIA/MODL Voice ID: [id number] Report ID: [id number]
== END 2024-10-23 12:00 | disposition home health service (06) ==
LOC: ER 09:42 → ERHOLD 15:41 → INTOOBSV 15:41 → 4TH 16:10
PROVIDERS: ADMIT Internal Medicine; ATTEND Internal Medicine
DX: K51.30 Ulcerative (chronic) rectosigmoiditis without complications (principal); R10.9 Unspecified abdominal pain; R11.2 Nausea with vomiting, unspecified; G43.909 Migraine, unspecified, not intractable, without status migrainosus; J45.909 Unspecified asthma, uncomplicated; E03.9 Hypothyroidism, unspecified; F41.9 Anxiety disorder, unspecified; F32.A Depression, unspecified; M85.80 Other specified disorders of bone density and structure, unspecified site; L40.50 Arthropathic psoriasis, unspecified
CPT/HCPCS: 85025 ×2; 80048; 36415; 80076; 83605; 87324; 84484; 83690 ×2; 80053; 70450; 74177; 99285; Q9967; J1200 ×2; J2543 ×3; J2405; J7799 ×2; J7040